=== PATIENT | male | born 1980 | race Caucasian/White ===

== ENCOUNTER 2016-09-11 19:33 | Emergency (ER) | payer MEDICAID, OTHER ==
[~2016-09-11] VITALS: Ht 177.8 cm; Wt 75.0 kg
[2016-09-11 19:58] VITALS: BP 125/74
== END 2016-09-11 22:04 | disposition left against medical advice (07) ==
LOC: ER 21:28
DX: Z53.21 Procedure and treatment not carried out due to patient leaving prior to being seen by health care provider (principal)

== ENCOUNTER 2016-09-12 12:24 | Emergency (ER) | payer MEDICAID | END 2016-09-12 15:49 | disposition left against medical advice (07) | LOC: ER 12:24 | DX: R21 Rash and other nonspecific skin eruption (principal); Z53.21 Procedure and treatment not carried out due to patient leaving prior to being seen by health care provider ==

== ENCOUNTER 2016-09-13 07:37 | Emergency (ER) | payer MEDICAID, OTHER ==
[~2016-09-13] VITALS: Ht 175.3 cm; Wt 68.0 kg
[2016-09-13 07:43] VITALS: BP 121/74
[2016-09-13] MEDS ORDERED: PERMETHRIN 5% CREAM 60GM TOP ONE (08:00)
== END 2016-09-13 09:55 | disposition left against medical advice (07) ==
LOC: ER 08:13
DX: Z53.21 Procedure and treatment not carried out due to patient leaving prior to being seen by health care provider (principal)